=== PATIENT | female | born 1970 | race Caucasian/White ===

== ENCOUNTER 2024-05-03 20:33 | Emergency (ER) | payer MEDICAID, SELFPAY ==
[2024-05-03 20:52] VITALS: BP 150/89; PULSE 100; RESP 16; TEMP 37; O2SAT 95
--- NOTE | 2024-05-03 21:05 | XR_ITS ---
Examination: Wrist, right 3 views Technique: Wrist AP, oblique, lateral 3 views Date and time of exam: 5 9 hrs. Indications: Injury to the wrist yesterday, wrist pain. Findings: There is possible dislocation the trainee Date and the capitate No fracture Impression: Dislocation involving the lunate capitate joint, please see the CT wrist study September 17, 2023 No acute fracture
--- NOTE | 2024-05-03 21:06 | EDNOTE_ITS ---
Upper Extremity Injury RME/HPI General Chief Complaint: Hand/Wrist Problems Stated Complaint: RIGHT WRIST /HAND INJURY Time Seen by Provider: 05/03/24 21:02 Source: patient Arrival date/time: 05/03/24 20:33 54-year-old female with a history of hypertension presents to the emergency room with a chief complaint of right wrist pain and tenderness that occurred after hitting herself on the door yesterday. Mode of arrival: ambulatory Limitations: no limitations Related Data Home Medications ?Medication ?Instructions ?Recorded ?Confirmed lisinopril 10 mg tablet 10 mg PO QDAY 10/19/17 12/18/20 Previous Rx's ?Medication ?Instructions ?Recorded ibuprofen 600 mg tablet 600 mg PO Q8H PRN fever or pain 09/17/23 #20 tabs ibuprofen 600 mg tablet 600 mg PO Q8H PRN fever or pain 05/03/24 #20 tabs Allergies Allergy/AdvReac Type Severity Reaction Status Date / Time adhesive tape Allergy Mild Rash Verified 09/17/23 10:29 Review of Systems Review of Systems Systems Reviewed: All systems reviewed, normal except as documented Constitutional Constitutional: Reports system reviewed and no additional complaints, except as documented, Denies fatigue, Denies fever(s), Denies headache(s) and Denies weakness Eyes Eyes: Reports system reviewed and no additional complaints, except as documented, Denies blurry vision and Denies change in vision ENT Ears, Nose, Mouth, and Throat: Reports system reviewed and no additional complaints, except as documented, Denies otalgia, Denies headache(s), Denies nasal congestion, Denies throat swelling and Denies vertigo Cardiovascular Cardiovascular: Reports system reviewed and no additional complaints, except as documented, Denies chest pain, Denies dyspnea and Denies dyspnea on exertion Respiratory Respiratory: Reports system reviewed and no additional complaints, except as documented, Denies chest congestion, Denies cough, Denies dyspnea, Denies dyspnea on exertion and Denies wheezing Gastrointestinal Gastrointestinal: Reports system reviewed and no additional complaints, except as documented, Denies abdominal pain, Denies cramping, Denies nausea and Denies vomiting Genitourinary Genitourinary: Reports system reviewed and no additional complaints, except as documented Musculoskeletal Musculoskeletal: Reports system reviewed and no additional complaints, except as documented, Reports arthralgias, Denies back pain, Reports joint swelling, Reports limited range of motion and Reports muscle weakness Integumentary/Breasts Skin/Breast: Reports system reviewed and no additional complaints, except as documented and Denies wounds Neurologic Neurologic: Reports system reviewed and no additional complaints, except as documented, Denies confusion, Denies headache(s), Denies lack of coordination, Denies vertigo and Denies weakness Psychiatric Psychiatric: Reports system reviewed and no additional complaints, except as documented, Denies anxiety, Denies confusion, Denies depression, Denies paranoia, Denies suicidal ideation and Denies tactile hallucinations Endocrine Endocrine: Reports system reviewed and no additional complaints, except as documented and Denies fatigue Hematologic/Lymphatic Hematologic/Lymphatic: Reports system reviewed and no additional complaints, except as documented and Denies lymphadenopathy Allergic/Immunologic Allergic/Immunologic: Reports system reviewed and no additional complaints, except as documented, Denies throat swelling, Denies urticaria and Denies wheezing Past Medical History Past Medical History NEUROLOGIC: Negative Neurological Disorders or Seizures CARDIAC: Positive Cardiac Disorders, Hypercholesterolemia and Hypertension; Negative Congestive Heart Failure RESPIRATORY: Negative Chronic Obstructive Pulmonary Disease (COPD) GASTROINTESTINAL: Positive Gastrointestinal Disorders (umbilical hernia); Negative Hepatitis GENITOURINARY: Positive Genitourinary Disorders and Kidney Stones; Negative Renal Disease REPRODUCTIVE: Positive Previous Pregnancies (x4) MUSCULOSKELETAL: Negative Musculoskeletal Disorders ENT: Positive Cataracts and Retinal Detachment (bilat) ENDOCRINE: Negative Endocrine Disorders, Diabetes Mellitus Type 1 or Diabetes Mellitus Type 2 HEMATOLOGIC: Negative Blood Disorders PSYCHO/SOCIAL: Positive Depression and Anxiety OTHER HISTORY: Positive Chicken Pox; Negative Hospitalization, Shingles, Falls, Blood Transfusions, Blood Transfusion Reaction, Anesthesia Reactions, Chemotherapy, Radiation Therapy, MRSA, Measles, Mumps or Cancer Surgical History SURGICAL: Positive Eye Surgery, Tonsillectomy, Abdominal Surgery and Tubal Ligation; Negative Cardiac Surgery Social History SMOKING STATUS: Current every day smoker ED Exam General Limitations: Present no limitations General appearance: Present alert and in no apparent distress Head Head exam: Present atraumatic Eye Eye exam: Present normal appearance, PERRL and EOMI ENT ENT exam: Present normal exam, normal oropharynx and mucous membranes moist Neck Neck exam: Present normal inspection, full ROM and trachea midline Chest Chest inspection: Present normal inspection and symmetric chest wall rise Respiratory Respiratory exam: Present normal lung sounds bilaterally Cardiovascular Cardiovascular exam: Present regular rate, normal rhythm and normal heart sounds Abdominal Exam Abdominal exam: Present soft and normal bowel sounds Extremities Exam Extremities exam: Present normal inspection and full ROM Expanded Upper Extremity Exam Shoulder exam: Present normal inspection Arm exam: Present normal inspection Elbow exam: Present normal inspection Forearm/Wrist exam: Present tenderness and swelling; Absent full ROM Back Exam Back exam: Present normal inspection and full ROM Neurological Exam Neurological exam: Present alert, oriented X3 and CN II-XII intact Psychiatric Psychiatric exam: Present normal affect and normal mood Skin Skin exam: Present warm, dry, intact and normal color Course Quality Measures none Orders Category Date Time Status splint [Splint / Immobilizer] STAT Care 05/03/24 22:31 Completed XR wrist comp RT min 3V Stat Exams 05/03/24 21:05 Completed Vital Signs Vital signs: Vital Signs Temperature 98.6 F 05/03/24 20:52 Pulse Rate 100 05/03/24 20:52 Respiratory Rate 16 05/03/24 20:52 Blood Pressure 150/89 H 05/03/24 20:52 Pulse Oximetry (%) 95 05/03/24 20:52 Oxygen Delivery Method Room Air 05/03/24 20:52 O2 saturation 95% within normal limits Extremity Injury MDM Narrative MDM Narrative:: 54-year-old female with a history of hypertension presents to the emergency room with a chief complaint of right wrist pain and tenderness that occurred after hitting herself on the door yesterday. Clinically the patient appears nontoxic and in no apparent distress. Physical examination shows tenderness and pain to the right wrist. X-ray was completed and shows no acute fracture however there is an old dislocation involving the lunate capitate joint. Patient states she never followed up after she was seen in the emergency room with her primary care provider regarding this old injury. Patient was educated that she needs to follow-up with her primary care provider and get referred to a hand acoustic intelligence specialist to fix her issue. Patient is able to move all her fingers. Patient was discharged and educated to follow-up with primary care provider and return to the emergency room for any evidence of worsening signs or symptoms Patient data External records reviewed:: [facility] previous records Clinical information provided by:: patient Social determinants that could affect healthcare access:: none Patient has the following chronic illnesses:: No chronic illness How is presenting disease/condition affected by chronic disease/condition?: no chronic disease Evaluation data The following diagnostics were reviewed and interpreted by me:: lab results and radiology exam(s) Lab and/or radiology exams considered but not ordered:: Labs and radiology exams considered and ordered Interpretation Summary: Hand [id number]: There is possible dislocation the trainee Date and the capitate No fracture Impression: Dislocation involving the lunate capitate joint, please see the CT wrist study September 17, 2023 No acute fracture Medications / Prescriptions Medications or Prescriptions considered but not ordered:: No medication given Medication administrations:: No medication given Consultations Consultation(s) initiated? (list below): No Diagnosis Upper Extremity Injury Differential Diagnosis: sprain and strain of wrist, fracture of wrist and fracture of hand Most likely diagnosis given after review of the tests above:: Sprain strain of wrist Admission Indicated Admission indicated?: not indicated Admission Request Was there a request for admission?: No Disposition Plan Disposition Plan: Discharge Discharge Attestation Discharge Attestation: The patient and all family members were given an opportunity to ask questions and understood the discharge instructions. Discharge instructions specifically effects, indications for sooner follow up or return to the emergency department, and the expected course of current diagnosis. Patient condition: Stable Discharge Plan Plan Patient Disposition: HOME (Self Care) Disposition Comment: Stable Prescriptions/Referrals Prescriptions/Med Rec: New ibuprofen 600 mg tablet 600 mg PO Q8H PRN (Reason: fever or pain) Qty: 20 0RF No Action lisinopril 10 mg Tablet 10 mg PO QDAY ibuprofen 600 mg tablet 600 mg PO Q8H PRN (Reason: fever or pain) Qty: 20 0RF Referrals: Tim Sheppard MD [Primary Care Provider] - In 1 week Problem List Clinical Impression: Sprain and strain of wrist Patient/Caregiver Discharge Instructions Additional Instructions: Please follow-up with your primary care provider in the next 24 to 48 hours. X-rays were completed and were negative for any acute fracture. You will need to be sent to an Ortho hand specialist as this is a chronic issue that needs follow-up. For any evidence of worsening signs or symptoms please return to the emergency room immediately Print Language: Wolof Stand Alone Forms: Lizette Award Info., Patient Portal Info Letter PA/COMBINATION SAW OPERATOR Supervising Physician PA/ARLEEN Supervising Physician: Dr. Whitmore
== END 2024-05-03 22:41 | disposition home or self-care (01) ==
PROVIDERS: Emergency Provider Emergency Medicine; PCP Family Medicine
DX: S63.501A Unspecified sprain of right wrist, initial encounter (principal); S66.911A Strain of unspecified muscle, fascia and tendon at wrist and hand level, right hand, initial encounter; W22.09XA Striking against other stationary object, initial encounter
CPT/HCPCS: 73110; 99283

== ENCOUNTER → 2024-08-29 | Outpatient (CLI) | payer BC, SELFPAY ==
[2024-08-29 10:59] LABS: Collection Type, Urine Clean Catch
[2024-08-29 11:28] LABS: Basophils % (Auto) 0 % (0-2.5); Eosinophils # (Auto) 0.2 Thou/mm3 (0.0-0.5); Eosinophils % (Auto) 2 % (0-10); Hematocrit 37.4 % (36.0-46.0); Hemoglobin 12.6 g/dL (12.0-16.0); Immature Granulocytes % (Auto) 0 % (0-0); Immature Granulocytes Auto 0.03 Thou/mm3 (0.00-0.00); Lymphocytes # (Auto) 2.1 Thou/mm3 (1.0-4.8); Lymphocytes % (Auto) 31 % (10-50); Mean Corpuscular HGB Conc 33.7 g/dl (31.0-37.0); Mean Corpuscular Hemoglobin 30.5 pg (25.0-35.0); Mean Corpuscular Volume 91 fL (80-100); Monocytes # (Auto) 0.7 Thou/mm3 (0.0-0.8); Monocytes % (Auto) 10 % (0-12); Neutrophils # (Auto) 3.8 Thou/mm3 (1.8-7.7); Neutrophils % (Auto) 57 % (37-80); Nucleated Red Blood Cell % 0 /100 WBC (0); Platelet Count 296 Thou/mm3 (140-440); RDW Standard Deviation 44.1 fL (36.4-46.3); Red Blood Count 4.13 Miln/mm3 (4.00-5.20); White Blood Count 6.7 Thou/mm3 (3.6-11.0)
[2024-08-29 11:31] LABS: Bilirubin,Urine Negative (Negative); Blood,Urine Negative (Negative); Color,Urine Yellow (Lt Yel-Yel); Culture Indicated,Urine Not Indicated; Glucose, Urine Negative (Negative); Ketones,Urine Negative (Negative); Leukocyte Esterase,Urine Positive (Negative); Nitrite,Urine Negative (Negative); PH,Urine 5.5 (5.0-7.0); Protein,Urine Negative (Neg - Trace); RBC,Urine 4 /hpf (0-3); Specific Gravity,Urine 1.028 (1.001-1.035); Squamous Epithelial Cell,Urine 17 /hpf (0-5); Urobilinogen,Urine Negative mg/dL (0.0-1.0); WBC,Urine 2 /hpf (0-5)
[2024-08-29 11:40] LABS: Glucose Estimated Average 108 mg/dL (80-131); Hemoglobin A1C 5.4 % Hgb (4.8-6.0)
[2024-08-29 11:47] LABS: Alanine Aminotransferase 20 U/L (10-49); Albumin, Serum 4.2 gm/dL (3.5-5.0); Albumin/Globulin Ratio 1.7 (1.2-2.2); Alkaline Phosphatase 118 U/L (46-116); Amylase 88 U/L (30-118); Anion Gap 8 (7-16); Aspartate Amino Transferase 21 U/L (0-34); BUN/Creatinine Ratio 16 Ratio (12-20); Bilirubin,Total 1.2 mg/dL (0.3-1.2); Blood Urea Nitrogen 13 mg/dL (9-23); Calcium 8.8 mg/dL (8.3-10.6); Calcium (Corrected) 8.8 mg/dL (8.5-10.1); Carbon Dioxide 27.4 mMol/L (20.0-31.0); Cardiac Risk Estimate 3.9 RATIO (3.7-5.6); Chloride 108 mMol/L (98-107); Cholesterol 167 mg/dL (132-200); Creatinine (Component) 0.8 mg/dL (0.6-1.3); Globulin 2.5 gm/dL (2.3-3.5); Glucose 105 mg/dL (74-106); HDL Cholesterol 43 mg/dL (40-60); LDL Cholesterol,Calculated 95 mg/dL (0-130); Lipase 53 U/L (12-53); Osmolality,Calculated 285 (275-295); Potassium 4.2 mMol/L (3.4-5.1); Sodium 143 mMol/L (136-145); Thyroid Stimulating Hormone 4.82 uIU/mL (0.55-4.78); Total Protein 6.7 gm/dL (5.7-8.2); Triglycerides 143 mg/dL (30-150); eGFR > 60 See Note
[2024-08-29 11:51] LABS: Clarity,Urine Hazy (Clear/Hazy)
== END | disposition home or self-care (01) ==
PROVIDERS: PCP Family Medicine; Referring Provider Specialist; Visit Provider Physician Assistant
DX: I10 Essential (primary) hypertension (principal); K92.2 Gastrointestinal hemorrhage, unspecified; R10.10 Upper abdominal pain, unspecified; R10.30 Lower abdominal pain, unspecified; R14.0 Abdominal distension (gaseous)
CPT/HCPCS: 36415; 80053; 80061; 81001; 82150; 83036; 83690; 84443; 85025

== ENCOUNTER → 2024-09-15 | Outpatient (CLI) | payer BC, SELFPAY ==
--- NOTE | 2024-09-15 11:00 | XR_ITS ---
Examination: CT abdomen with intravenous contrast CT pelvis with intravenous contrast 2-D coronal reconstructions 2-D sagittal reconstructions Date and time of exam:12/16/2024 1103 hours INDICATIONS: Nausea vomiting abdominal pain beginning June 2024 Comparison November 16, 2009. CTDI: vol (mGy) 14.2 DLP: (mGycm) 447 Technique: Multiple axial sections of the abdomen and pelvis have been obtained. 64 slice high-resolution scanner used. 3 mm axial sections have been obtained, post intravenous injection 60 cc [id number] 2-D sagittal, coronal reconstructions obtained. Low dose protocols were performed. One or more of the following dose reduction techniques were used; automated exposure control, adjustment of the mA and/or KV according to patient size, use of iterative reconstruction technique. Findings: No focal liver or splenic lesions Absent gallbladder No common bile duct stones No pancreatic mass No renal or ureteral calculi Lower pole left renal cyst, 23 mm No periappendiceal inflammatory change No bowel obstruction Scattered colonic diverticulosis Anteverted uterus No adnexal mass Urinary bladder intact IMPRESSION: No renal or ureteral calculi, no hydronephrosis No common bile duct stones. Normal appendix Scattered colonic diverticulosis
== END | disposition home or self-care (01) ==
LOC: CCTX 10:36
PROVIDERS: PCP Family Medicine; Referring Provider Specialist; Visit Provider Specialist
DX: K57.30 Diverticulosis of large intestine without perforation or abscess without bleeding (principal)
CPT/HCPCS: 74177; A4649; Q9967

== ENCOUNTER 2024-09-27 07:20 | Day surgery (SDC) | payer BC, SELFPAY ==
[2024-09-26 14:41] VITALS: BMI 26.5
[2024-09-27] VITALS (11 sets, daily range): BP systolic 97–158; BP diastolic 61–85; PULSE 68–83; RESP 12–17; TEMP 36.2–36.7; O2SAT 93–98; BMI 25.5
[2024-09-27] MEDS: SODIUM CHLORIDE 0.9% 500 ML 500 ML 20 ML IV (09:23)
[2024-09-27] MEDS: DiphenhydrAMINE INJ 50 MG/ML VIAL 25 MG IVP (09:27)
[2024-09-27] MEDS: fentaNYL CIT INJ 50 mCg/ML AMP 2ML (ASD USE ONLY) IVP (09:43)
[2024-09-27] MEDS: MIDAZOLAM INJ 1 MG/ML VIAL 2 ML (ASD USE ONLY) 2 MG IVP (09:43)
== END 2024-09-27 10:50 | disposition home or self-care (01) ==
PROVIDERS: PCP Family Medicine; Referring Provider Specialist; Visit Provider Specialist
PROC: 0DBE8ZX Excision of Large Intestine, Via Natural or Artificial Opening Endoscopic, Diagnostic (ICD-10-PCS; CPT 45380; principal; 2024-09-27 08:30)
PROC: (CPT 43239; 2024-09-27 08:30)
DX: K64.3 Fourth degree hemorrhoids (principal)
CPT/HCPCS: 46221; 45378; J1200; J2250; J3010; J7040